=== PATIENT | male | born 1980 ===

== ENCOUNTER 2017-10-12 15:43 | Emergency (ER) | payer OTHER ==
[2017-10-12 16:11] VITALS: BMI 31.4
[2017-10-12 16:15] VITALS: RESP 18
[2017-10-12] MEDS ORDERED: Sodium Chloride 0.9% 1,000 ML IV STA ×2 (16:42→17:57)
--- NOTE | 2017-10-12 16:51 | ED PDOC ---
Arrival/HPI - General Chief Complaint: High Blood Sugar Time Seen by Provider: 10/12/17 16:17 Historian: Patient - History of Present Illness Narrative History of Present Illness (Text): 10/12/17 16:43 This 37 yo male with pmh diabetes x 4 years, presents to this ED for evaluation of diabetes, feeling fatigue x 2 days. Patient stated duet to his [facility] care a year ago, he has not been taken Metformin 1000 mg BID as instructed by [facility] clinic doctor. Patient stated during the last year, he has been improving his diet to control his DM. Patient stated he has been getting very thirsty, so he went to see a new doctor in [place] , yesterday. He said at the doctor office, his glucose level was too high to be read, so doctor injected him Regular Insulin 10U IM, and he was told to go to ED. He said he was busy, so he was not able to go to ED, so he came today. On the contrary of ED triage nurse note, patient denies WADE. He also denies taking Insulin at doctor office regularly. Patient saw his new doctor only once x 2 days ago. He denies other somatic complains. Time/Duration: Other (see hpi) Context: Home Past Medical History - Provider Review Nursing Documentation Reviewed: Yes - Infectious Disease Hx of Infectious Diseases: None - Endocrine/Metabolic Hx Diabetes Mellitus Type 1: Yes - Psychiatric Hx Substance Use: No Family/Social History - Physician Review Nursing Documentation Reviewed: Yes Family/Social History: Other (noncontributory) Smoking Status: Never Smoked Hx Alcohol Use: Yes Frequency of alcohol use: Socially Hx Substance Use: No Allergies/Home Meds Allergies/Adverse Reactions: Allergies No Known Allergies Allergy (Verified 10/12/17 16:11) Home Medications: Home Meds Medication Instructions Recorded Confirmed MetFORMIN [glucoPHAGE] 1 tab PO DAILY 10/12/17 10/12/17 Review of Systems - Review of Systems Constitutional: Fatigue. absent: Weight Change, Fevers, Night Sweats Eyes: Normal ENT: Normal Respiratory: Normal. absent: SOB, Cough Cardiovascular: Normal. absent: Chest Pain, Palpitations Gastrointestinal: Normal. absent: Abdominal Pain, Nausea, Vomiting Genitourinary Male: Normal. absent: Dysuria, Frequency, Hematuria Musculoskeletal: Normal. absent: Back Pain, Myalgias Skin: Normal. absent: Rash Neurological: Normal. absent: Headache, Dizziness, Focal Weakness, Gait Changes , Speech Changes, Facial Droop, Disequilibrium, Seizure Endocrine: Polyuria, Polydipsia. absent: Diaphoresis Hemo/Lymphatic: Normal Psychiatric: Normal Physical Exam Vital Signs Temp Pulse Resp BP Pulse Ox 10/12/17 16:15 98.7 F 89 18 137/92 H 97 Temperature: Afebrile Blood Pressure: Normal Pulse: Regular Respiratory Rate: Normal Appearance: Positive for: Well-Appearing, Non-Toxic, Comfortable Pain Distress: None Mental Status: Positive for: Alert and Oriented X 3 Finger Stick Blood Glucose: 380 - Systems Exam Head: Present: Atraumatic, Normocephalic Pupils: Present: PERRL Extroacular Muscles: Present: EOMI Conjunctiva: Present: Normal Mouth: Present: Moist Mucous Membranes Neck: Present: Normal Range of Motion Respiratory/Chest: Present: Clear to Auscultation, Good Air Exchange. No: Respiratory Distress, Accessory Muscle Use Cardiovascular: Present: Regular Rate and Rhythm, Normal S1, S2. No: Murmurs Abdomen: No: Tenderness, Distention, Peritoneal Signs Back: Present: Normal Inspection Upper Extremity: Present: Normal Inspection, Normal ROM, NORMAL PULSES, Neurovascularly Intact, Capillary Refill < 2s. No: Cyanosis, Edema Lower Extremity: Present: Normal Inspection, NORMAL PULSES, Normal ROM, Neurovascularly Intact, Capillary Refill < 2 s. No: Edema Neurological: Present: GCS=15, CN II-XII Intact, Speech Normal, Motor Func Grossly Intact, Normal Sensory Function, Normal Cerebellar Funct, Gait Normal, Memory Normal Skin: Present: Warm, Dry, Normal Color. No: Rashes Psychiatric: Present: Alert, Oriented x 3, Normal Insight, Normal Concentration Medical Decision Making ED Course and Treatment: 10/12/17 19:15 Re-evaluation. Patient feels better. Discussed results and plan with patient who expresses understanding. All questions answered and there is agreement with the plan to discharge home with instructions. Patient stable for discharge. Return if symptoms persist or worsen. Glucose is 253 at this time. Patient was recommended to f/u clinic doctor in 1- 2 days. To apply for mesha care. To be compliant with medication. Return to emergency if symptoms worsen. Re-evaluation Time: 19:17 Reassessment Condition: Re-examined, Improved - Lab Interpretations Lab Results: 10/12/17 17:00 10/12/17 17:00 Lab Results 10/12/17 18:55: POC Glucose (mg/dL) 253 H 10/12/17 18:35: Urine Color Yellow, Urine Appearance Clear, Urine pH 6.0, Ur Specific [place] 1.010, Urine Protein Negative, Urine Glucose (UA) >=1000, Urine Ketones 15 H, Urine Blood Negative, Urine Nitrate Negative, Urine Bilirubin Negative, Urine Urobilinogen 0.2, Ur Leukocyte Esterase Negative 10/12/17 17:00: Sodium 138, Potassium 3.9, Chloride 99, Carbon Dioxide 25, Anion Gap 18, BUN 25 H, Creatinine 0.7 L, Est GFR ( Amer) > 60, Est GFR ( Non-Af Amer) > 60, Random Glucose 457 H*, Calcium 9.5, Total Bilirubin 0.5, AST 29, ALT 36, Alkaline Phosphatase 98, Total Protein 7.3, Albumin 4.1, Globulin 3.3, Albumin/Globulin Ratio 1.2 10/12/17 17:00: WBC 8.2, RBC 5.30, Hgb 15.6, Hct 45.0, MCV 84.9, MCH 29.4, MCHC 34.7, RDW 12.1, Plt Count 341, MPV 9.3, Gran % 68.7 H, Lymph % (Auto) 17.6 L, [place] % (Auto) 6.8 H, Eos % (Auto) 6.3 H, Baso % (Auto) 0.6, Gran # 5.64, Lymph # (Auto) 1.5, [place] # (Auto) 0.6, Eos # (Auto) 0.5, Baso # (Auto) 0.05 10/12/17 16:19: POC Glucose (mg/dL) 380 H I have reviewed the lab results: Yes Interpretation: Abnormal lab values - Medication Orders Current Medication Orders: Discontinued Medications Sodium Chloride (Sodium Chloride 0.9%) 1,000 mls @ 999 mls/hr IV .Q1H1M STA Stop: 10/12/17 17:42 Last Admin: 10/12/17 16:45 Dose: 999 mls/hr eMAR Start Stop Document 10/12/17 16:45 [email or web address] (Rec: 10/12/17 18:09 [email or web address] [id number]) Intravenous Solution Start Date 10/12/17 Start Time 16:45 Sodium Chloride (Sodium Chloride 0.9%) 1,000 mls @ 999 mls/hr IV .Q1H1M STA Stop: 10/12/17 18:57 Last Admin: 10/12/17 18:09 Dose: 999 mls/hr eMAR Start Stop Document 10/12/17 18:09 [email or web address] (Rec: 10/12/17 18:09 [email or web address] [id number]) Intravenous Solution Start Date 10/12/17 Start Time 18:09 Insulin Human Regular (Humulin R) 10 units IVP ONCE ONE Stop: 10/12/17 17:42 Last Admin: 10/12/17 18:08 Dose: 10 units MAR Blood Glucose Document 10/12/17 18:08 [email or web address] (Rec: 10/12/17 18:09 [email or web address] [id number]) Blood Glucose Finger Stick Blood Glucose (70-120) 380 IVP Administration Document 10/12/17 18:08 [email or web address] (Rec: 10/12/17 18:09 [email or web address] [id number]) Charges for Administration # of IVP Administrations 1 Disposition/Present on Arrival - Present on Arrival Any Indicators Present on Arrival: No History of DVT/PE: No History of Uncontrolled Diabetes: No Urinary Catheter: No History of Decub. Ulcer: No History Surgical Site Infection Following: None - Disposition Have Diagnosis and Disposition been Completed?: Yes Diagnosis: Uncontrolled diabetes mellitus Disposition: HOME/ ROUTINE Disposition Time: 19:17 Patient Plan: Discharge Condition: GOOD Discharge Instructions (ExitCare): Diabetes Type 2 (DC), Diabetic Meal Planning Print Language: PORTUGUESE Additional Instructions: Call private doctor for follow up visit in 1-2 days. Take medication as instructed. Return to emergency if symptoms worsen. Llama a la clinica para seguimiento medico en 1-2 lazo. Leal la medicina vimal esta indicado. Regrese a la emergencia si sintoma empeora. Prescriptions: MetFORMIN [glucoPHAGE] 1,000 mg PO BID #30 tab Referrals: PCP,NO [Primary Care Provider] - Follow up with primary [facility] [Outside] - Follow up with primary [facility] [Outside] - Follow up with primary Forms: [employer] (Norwegian), WORK NOTE
[2017-10-12 17:13] LABS: BASO # 0.05 K/mm3 (0.0-2.0); BASO % 0.6 % (0.0-3.0); EOS # 0.5 (0.0-0.7); EOS % 6.3 % (1.5-5.0); GRAN # 5.64 (1.4-6.5); GRAN % 68.7 % (50.0-68.0); HEMOGLOBIN 15.6 g/dL (14.0-18.0); LYMPH # 1.5 (1.2-3.4); LYMPH % 17.6 % (22.0-35.0); MEAN CELL VOLUME 84.9 fl (80.0-105.0); MEAN CORPUSCULAR HEMOGLOBIN 29.4 pg (25.0-35.0); MEAN CORPUSCULAR HGB CONC 34.7 g/dl (31.0-37.0); MEAN PLATELET VOLUME 9.3 fl (7.0-11.0); MONO # 0.6 (0.1-0.6); MONO % 6.8 % (1.0-6.0); RBC 5.3 10^6/uL (3.5-6.1); RED CELL DISTRIBUTION WIDTH 12.1 % (11.5-14.5); WHITE BLOOD COUNT 8.2 10^3/ul (4.5-11.0)
[2017-10-12 17:35] LABS: ALB/GLOB RATIO 1.2 (1.1-1.8); ALBUMIN 4.1 g/dL (3.0-4.8); ALT/SGPT 36 U/L (7-56); AST/SGOT 29 U/L (17-59); BLOOD UREA NITROGEN 25 mg/dL (7-21); CALCIUM 9.5 mg/dL (8.4-10.5); GFR AFRICAN-AMERICAN > 60; GFR NON-AFRICAN AMERICAN > 60
[2017-10-12] MEDS ORDERED: Insulin Regular 1 UNITS/0.01 ML ML IVP ONE (17:41)
[2017-10-12 18:59] LABS: URINE BILIRUBIN NEGATIVE (NEGATIVE); URINE BLOOD NEGATIVE (NEGATIVE); URINE GLUCOSE (UA) >=1000 mg/dL (NEGATIVE); URINE LEUKOCYTE ESTERASE NEGATIVE Leu/uL (NEGATIVE); URINE PROTEIN NEGATIVE mg/dL (<30 mg/dL); URINE UROBILINOGEN 0.2 E.U./dL (<1 E.U./dL)
[2017-10-12 19:01] LABS: URINE APPEARANCE CLEAR (CLEAR); URINE COLOR YELLOW (YELLOW)
[2017-10-12 19:48] VITALS: BP 128/84; PULSE 18; TEMP 98.2; O2SAT 99
== END 2017-10-12 19:46 | disposition home or self-care (01) ==
LOC: ED 15:43
DX: E10.65 Type 1 diabetes mellitus with hyperglycemia (principal); Z79.4 Long term (current) use of insulin
CPT/HCPCS: 80053; 81003; 82948; 85025; 96374; 99283; J7030

== ENCOUNTER 2017-11-22 15:21 | Emergency (ER) | payer OTHER ==
[2017-11-22 15:21] VITALS: BMI 31.4
[2017-11-22] MEDS ORDERED: Insulin Regular 1 UNITS/0.01 ML ML IVP STA (15:37)
[2017-11-22] MEDS ORDERED: Sodium Chloride 0.9% 1,000 ML IV STA (15:37)
[2017-11-22 15:59] LABS: BASO # 0.04 K/mm3 (0.0-2.0); BASO % 0.5 % (0.0-3.0); EOS # 0.4 (0.0-0.7); EOS % 5.9 % (1.5-5.0); GRAN # 4.75 (1.4-6.5); GRAN % 64.9 % (50.0-68.0); HEMOGLOBIN 15.8 g/dL (14.0-18.0); LYMPH # 1.7 (1.2-3.4); LYMPH % 23.1 % (22.0-35.0); MEAN CORPUSCULAR HEMOGLOBIN 28.9 pg (25.0-35.0); MEAN CORPUSCULAR HGB CONC 34.9 g/dl (31.0-37.0); MEAN PLATELET VOLUME 9.4 fl (7.0-11.0); MONO # 0.4 (0.1-0.6); MONO % 5.6 % (1.0-6.0); RBC 5.46 10^6/uL (3.5-6.1); RED CELL DISTRIBUTION WIDTH 12.3 % (11.5-14.5); VENOUS BLOOD GAS BASE EXCESS 2.2 mmol/L (0.0-2.0); VENOUS BLOOD GAS PO2 60 mm/Hg (30-55); VENOUS BLOOD PH 7.39 (7.32-7.43); WHITE BLOOD COUNT 7.3 10^3/ul (4.5-11.0)
--- NOTE | 2017-11-22 16:03 | ED PDOC ---
Arrival/HPI - General Chief Complaint: High Blood Sugar Time Seen by Provider: 11/22/17 15:27 Historian: Patient - History of Present Illness Narrative History of Present Illness (Text): 11/22/17 15:37 37 year old male, with past medical history of type II diabetes on metformin, presents to the Emergency department for evaluation of elevated blood sugar since prior to arrival. Patient states he was at the clinic when his blood sugar elevated over 400 mg/dL and was consequently referred to the Emergency department for medical evaluation. Patient informs associated polyuria and polydipsia and states noncompliance with his medication for past 2 days. Patient denies any fever, chills, nausea, vomiting, diarrhea, abdominal pain, chest pain, shortness of breath, headache, dizziness or any other complaints. Time/Duration: Prior to Arrival Symptom Onset: Gradual Activities at Onset: Light Context: Other (Clinic) Past Medical History - Provider Review Nursing Documentation Reviewed: Yes - Infectious Disease Hx of Infectious Diseases: None - Endocrine/Metabolic Hx Diabetes Mellitus Type 2: Yes - Psychiatric Hx Substance Use: No Family/Social History - Physician Review Nursing Documentation Reviewed: Yes Family/Social History: No Known Family HX Smoking Status: Never Smoked Hx Alcohol Use: Yes Frequency of alcohol use: Socially Hx Substance Use: No Allergies/Home Meds Allergies/Adverse Reactions: Allergies No Known Allergies Allergy (Verified 11/22/17 15:48) Home Medications: Home Meds Medication Instructions Recorded Confirmed MetFORMIN [glucoPHAGE] 1 tab PO DAILY 10/12/17 11/22/17 Review of Systems - Physician Review All systems were reviewed & negative as marked: Yes - Review of Systems Constitutional: absent: Fevers Respiratory: Normal. absent: SOB Cardiovascular: Normal. absent: Chest Pain Gastrointestinal: Normal. absent: Abdominal Pain, Diarrhea, Nausea, Vomiting Neurological: Normal. absent: Headache, Dizziness Endocrine: Polyuria, Polydipsia Physical Exam Vital Signs Reviewed: Yes Vital Signs Temp Pulse Resp BP Pulse Ox 11/22/17 17:31 98.1 F 71 17 147/84 99 11/22/17 17:29 98.1 F 71 17 147/84 99 11/22/17 15:41 98.1 F 75 18 149/88 98 Temperature: Afebrile Blood Pressure: Normal Pulse: Regular Respiratory Rate: Normal Appearance: Positive for: Well-Appearing, Non-Toxic, Comfortable Pain Distress: None Mental Status: Positive for: Alert and Oriented X 3 Finger Stick Blood Glucose: 402 - Systems Exam Head: Present: Atraumatic, Normocephalic Pupils: Present: PERRL Extroacular Muscles: Present: EOMI Conjunctiva: Present: Normal Mouth: Present: Moist Mucous Membranes Neck: Present: Normal Range of Motion Respiratory/Chest: Present: Clear to Auscultation, Good Air Exchange. No: Respiratory Distress, Accessory Muscle Use Cardiovascular: Present: Regular Rate and Rhythm, Normal S1, S2. No: Murmurs Abdomen: No: Tenderness, Distention, Peritoneal Signs Upper Extremity: Present: Normal Inspection. No: Cyanosis, Edema Lower Extremity: Present: Normal Inspection. No: Edema Neurological: Present: GCS=15, CN II-XII Intact, Speech Normal Skin: Present: Warm, Dry, Normal Color. No: Rashes Psychiatric: Present: Alert, Oriented x 3, Normal Insight, Normal Concentration Medical Decision Making ED Course and Treatment: 11/22/17 15:37 Impression: 37 year old male presents to the Emergency department for elevated blood glucose. Differential Diagnosis included but are not limited to: hyperglycemia Plan: -- VBG -- Labs -- Insulin -- IV Fluids -- Reassess and disposition Prior Visits: Notes and results from previous visits were reviewed. Progress Notes: - Lab Interpretations Lab Results: 11/22/17 15:30 11/22/17 15:30 Lab Results 11/22/17 17:02: POC Glucose (mg/dL) 279 H 11/22/17 15:30: Hemoglobin A1c 15.5 H 11/22/17 15:30: Sodium 138, Chloride 97 L, Potassium 3.9, Carbon Dioxide 27, Anion Gap 18, BUN 15, Creatinine 0.7 L, Est GFR ( Amer) > 60, Est GFR ( Non-Af Amer) > 60, Random Glucose 480 H*, Calcium 9.6, Total Bilirubin 0.6, AST 28, ALT 34, Alkaline Phosphatase 102, Total Protein 8.1, Albumin 4.7, Globulin 3.5, Albumin/Globulin Ratio 1.3 11/22/17 15:30: pO2 60 H, VBG pH 7.39, VBG pCO2 46.0, VBG HCO3 27.8, VBG Total CO2 29.2 H, VBG O2 Sat (Calc) 92.2 H, VBG Base Excess 2.2 H, VBG Potassium 3.8, Sodium 137.0, Chloride 99.0, Glucose 493 H*, Lactate 1.6, FiO2 21.0, Venous Blood Potassium 3.8 11/22/17 15:30: WBC 7.3, RBC 5.46, Hgb 15.8, Hct 45.3, MCV 83.0, MCH 28.9, MCHC 34.9, RDW 12.3, Plt Count 320, MPV 9.4, Gran % 64.9, Lymph % (Auto) 23.1, [place] % (Auto) 5.6, Eos % (Auto) 5.9 H, Baso % (Auto) 0.5, Gran # 4.75, Lymph # (Auto ) 1.7, [place] # (Auto) 0.4, Eos # (Auto) 0.4, Baso # (Auto) 0.04 11/22/17 15:26: POC Glucose (mg/dL) 403 H* - Medication Orders Current Medication Orders: Discontinued Medications Sodium Chloride (Sodium Chloride 0.9%) 1,000 mls @ 999 mls/hr IV .Q1H1M STA Stop: 11/22/17 16:37 Last Admin: 11/22/17 15:45 Dose: 999 mls/hr eMAR Start Stop Document 11/22/17 15:45 [facility] (Rec: 11/22/17 15:45 [facility] [id number]) Intravenous Solution Start Date 11/22/17 Start Time 15:45 End Date 11/22/17 End time 16:46 Total Infusion Time 61 Insulin Human Regular (Humulin R) 4 units IVP STAT STA Stop: 11/22/17 15:38 Last Admin: 11/22/17 15:46 Dose: 4 unit MAR Blood Glucose Document 11/22/17 15:46 [facility] (Rec: 11/22/17 15:46 [facility] [id number]) Blood Glucose Finger Stick Blood Glucose (70-120) 402 IVP Administration Document 11/22/17 15:46 [facility] (Rec: 11/22/17 15:46 [facility] [id number]) Charges for Administration # of IVP Administrations 1 - Scribe Statement The provider has reviewed the documentation as recorded by the Scribnick [place]. All medical record entries made by the Scribe were at my direction and personally dictated by me. I have reviewed the chart and agree that the record accurately reflects my personal performance of the history, physical exam, medical decision making, and the department course for this patient. I have also personally directed, reviewed, and agree with the discharge instructions and disposition. Disposition/Present on Arrival - Present on Arrival Any Indicators Present on Arrival: Yes History of DVT/PE: No History of Uncontrolled Diabetes: No Urinary Catheter: No History of Decub. Ulcer: No History Surgical Site Infection Following: None - Disposition Have Diagnosis and Disposition been Completed?: Yes Diagnosis: Hyperglycemia due to type 2 diabetes mellitus Disposition: HOME/ ROUTINE Disposition Time: 16:20 Condition: IMPROVED Discharge Instructions (ExitCare): Diabetes Type 2 (DC) Print Language: VATICAN CITIZEN Additional Instructions: JACOB MULLER, thank you for letting us take care of you today. Your provider was Urbano Anderson DO and you were treated for Hyperglycemia. The emergency medical care you received today was directed at your acute symptoms. If you were prescribed any medication, please fill it and take as directed. It may take several days for your symptoms to resolve. Return to the Emergency Department if your symptoms worsen, do not improve, or if you have any other problems. Please contact your doctor or call one of the physicians/clinics you have been referred to that are listed on the Patient Visit Information form that is included in your discharge packet. Bring any paperwork you were given at discharge with you along with any medications you are taking to your follow up visit. Our treatment cannot replace ongoing medical care by a primary care provider outside of the emergency department. Thank you for allowing the [facility] team to be part of your care today. Take your medication as prescribed everyday. Follow up with the clinic as scheduled. JACOB MULLER, taylor por dejarnos atenderlo hoy. Torres proveedor fue Urbano Anderson DO y usted recibi tratamiento para Hiperglucemia. La atenci n mdica de emergencia que recibi hoy estaba dirigida a micaela sntomas agudos. Si le prescribieron algn medicamento, llnelo y tome segn las indicaciones. Micaela sntomas pueden tardar varios gamino en resolverse. Regrese al Departamento de Emergencia si micaela sntomas empeoran, no mejoran o si tiene algn otro problema. Comunquese con torres mdico o llame a claribel de los mdicos / clnicas a los que persaud sido referido que figura en el formulario de Informacin de visita del paciente que se incluye en torres paquete de victor manuel. Traiga todos los documentos que recibi al momento del victor manuel junto con los medicamentos que est tomando en torres visita de seguimiento. Nuestro tratamiento no puede reemplazar la atencin mdica en curso por un proveedor de atencin primaria fuera del departamento de emergencia. Taylor por permitir que el equipo de [facility] sea parte de torres cuidado hoy. [place] torres medicamento segn lo prescrito todos los gamino. Twan un seguimiento con la clnica segn lo programado. Prescriptions: MetFORMIN [glucoPHAGE] 1,000 mg PO DAILY #30 tab Referrals: [facility] [Outside] - Follow up with primary Bonita Ireland MD [Staff Provider] - Follow up with primary Forms: [employer] (Syriac)
[2017-11-22 16:17] LABS: ALB/GLOB RATIO 1.3 (1.1-1.8); ALBUMIN 4.7 g/dL (3.0-4.8); ALT/SGPT 34 U/L (7-56); AST/SGOT 28 U/L (17-59); BLOOD UREA NITROGEN 15 mg/dL (7-21); CALCIUM 9.6 mg/dL (8.4-10.5); GFR AFRICAN-AMERICAN > 60; GFR NON-AFRICAN AMERICAN > 60
[2017-11-22 17:30] VITALS: BP 147/84; PULSE 71; RESP 17; TEMP 98.1; O2SAT 99
== END 2017-11-22 17:33 | disposition home or self-care (01) ==
LOC: ED 15:21
DX: E11.65 Type 2 diabetes mellitus with hyperglycemia (principal)
CPT/HCPCS: 80053; 82803; 82948; 83036; 85025; 96361; 96374; 99283; J7030